=== PATIENT | female | born 1985 ===

== ENCOUNTER 2017-08-24 22:39 | Emergency (ER) | payer OTHER ==
[~2017-08-24] VITALS: Ht 162.6 cm; Wt 99.8 kg
[~2017-08-24 22:39] MED LIST: AMOX500 PO; FLUSAL1005 IH; HYDACE5 PO; IBUP800 PO; PREN-16 PO
== END 2017-08-25 03:15 | disposition left against medical advice (07) ==
LOC: ER 22:39
DX: Z53.21 Procedure and treatment not carried out due to patient leaving prior to being seen by health care provider (principal)

== ENCOUNTER → 2018-08-20 | Outpatient (CLI) | payer OTHER ==
[2018-08-21 14:07] LABS: HPV 16 Negative (Negative); HPV 18 Negative (Negative); HPV OTHER HR TYPES Negative (Negative)
== END | disposition home or self-care (01) ==
LOC: LAB SHORT 12:17 → LAB 12:17
PROVIDERS: Nurse Practitioner Women's Health
DX: Z12.4 Encounter for screening for malignant neoplasm of cervix (principal)
CPT/HCPCS: 87624; G0123